=== PATIENT | male | born 1950 | race Caucasian/White ===

== ENCOUNTER 2016-10-07 05:23 | Inpatient (IN) ==
[~2016-10-07 05:23] MED LIST: SALINE FLUSH 10ml SYRINGE IVF PRN
[2016-10-07] MEDS ORDERED: FAMOTIDINE PB 20 MG/50 ML BAG IV ONE (06:00)
[2016-10-07] MEDS ORDERED: DEXAMETHASONE 4 MG/ML INJECTION IVP ONE (06:00)
[2016-10-07] MEDS ORDERED: METOCLOPRAMIDE 10mg/2ml INJECTION IVP ONE (06:00)
[2016-10-07] MEDS ORDERED: LIDOCAINE 1% (10mg/ml) 10mL MDV SQ ONE (06:00)
[2016-10-07] MEDS ORDERED: NOZIN NASAL SWAB NAS ONE ×2 (06:00→10:40)
[2016-10-07] MEDS ORDERED: TRANEXAMIC ACID 1,000 MG in NS 100 ML IV ONE ×2 (06:00→07:00)
[2016-10-07] MEDS ORDERED: MELOXICAM 15 MG TABLET PO ONE (06:00)
[2016-10-07] MEDS ORDERED: CEFAZOLIN 1 G INJECTION IVP ONE (06:00)
[2016-10-07] MEDS ORDERED: ACETAMINOPHEN 500 MG TABLET PO ONE (06:00)
[2016-10-07] MEDS ORDERED: ONDANSETRON 4 MG/2 ML INJECTION IVP ONE (06:00)
[2016-10-07] MEDS: LR 1,000 ML IV SCH ×4 (06:16→10:23)
[2016-10-07] MEDS ORDERED: VANCOMYCIN 1,000 MG INJECTION ONE (06:27)
[2016-10-07] MEDS ORDERED: MIDAZOLAM 2mg/2ml INJECTION ONE (07:25)
[2016-10-07] MEDS ORDERED: EPINEPHrine 0.25 MG, BUPIVACAINE 0.25% PF 30 ML, MORPHINE SULFATE 15 MG, KETOROLAC INJ ... OPSITE ONE (08:00)
[2016-10-07] MEDS ORDERED: VANCOMYCIN 1,000 MG INJECTION IAR ONE (08:59)
--- NOTE | 2016-10-07 08:59 | Anesthesia Preoperative Report ---
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 Allergies/Adverse Reactions: Allergies Allergy/AdvReac Type Severity Reaction Status Date / Time Sulfa (Sulfonamide Allergy Unknown Verified 10/07/16 05:53 Antibiotics) - Vital Signs Vital Signs: Temperature 98.0 F 10/07/16 05:41 Pulse Rate 58 L 10/07/16 06:00 Respiratory Rate 16 10/07/16 05:41 Blood Pressure 197/90 H 10/07/16 05:41 Pulse Oximetry 98 10/07/16 05:41 Oxygen Delivery Method Room Air Height and Weight: Height 1.73 m Weight 100.6 kg Body Mass Index 33.7 - Medications Inpatient Medications: Current Medications Epinephrine HCl 0.25 mg/Bupivacaine HCl 30 ml/Morphine Sulfate 15 mg/Ketorolac Tromethamine 60 mg/Sodium Chloride 65.25 mls @ 1 mls/hr OPSITE INTRAOP ONE PRN Reason: Protocol Stop: 10/10/16 01:14 Lactated Ringer's (Lactated Ringers) 1,000 mls @ 50 mls/hr IV .Q20H TEJAL Last Admin: 10/07/16 07:40 Dose: 50 mls/hr Sodium Chloride (Iv Flush) 10 - 80 ml IVF PRN PRN PRN Reason: [place] Home Medications: Home Medications Medication Instructions Recorded Confirmed Type Simvastatin 20 mg PO HS #0 09/24/12 10/07/16 History Aspirin [Aspirin EC] 81 mg PO BID 09/17/16 10/07/16 History Multivitamin [One-A-Day Essential] 1 each PO DAILY 09/17/16 10/07/16 History metoprolol succinate ER 25 mg 25 mg PO BID tab 09/17/16 10/07/16 History tablet,extended release 24 hr - Surgical History HEENT Surgeries: Reports: Eye Surgery (cataract OD with IOL) Cardiac Surgeries/Treatments: Reports: Other (left carotid endarterectomy) GI Surgery/Treatments: Reports: Hernia Repair (meka inguinal and umb) Musculoskeletal Surgery/Tx: Reports: Total Hip Replacement (Left) - Social History Smoking Status: Never smoker - Discussion Discussion: Discussed risks/options/alternatives of anesthesia and questions answered. Patient consents. Nursing pain assessment noted. Attestation Statement: Prior to the delivery of any anesthetic medication, I examined the patient, developed the plan, obtained the patient's consent and discussed the risk and benefits of the procedure with the patient/guardian.
--- NOTE | 2016-10-07 09:08 | Operative Note ---
- Procedure Date of Admission: 10/07/16 Side: right Preoperative Diagnosis: hip primary DJD Postoperative Diagnosis: Same as preoperative diagnosis. Operation: total hip arthroplasty Surgeon: Sajan Beckwith MD Exhibit Preparator: Diego Chan Complications: None. Regional/Trunk Block: Spinal Estimated Blood Loss: See Anesthesia Record. Fluids: Please see Anesthesia Record. Description of Procedure: Mr. siddiqui and his right hip were identified and marked in the preoperative holding area. He was brought back to the operating suite and spinal anesthetic was administered. He was then placed in a lateral decubitus position with his right hip up. The right lower extremity was prepped and draped in my normal sterile fashion. Timeout was performed. The [employer] robotic arm was used to assist with the surgery. A direct superior approach was utilized. An approximately 15 cm incision was made in the skin and dissection carried down to the muscle fascia which was then split in line with skin incision. A checkpoint was placed in the greater trochanter. The short external rotators were identified and tagged and detached. A capsulotomy was performed and the hip dislocated. A femoral neck osteotomy was performed at the pre-templated level measuring down from the femoral head. The head was removed and acetabulum exposed. He had significant osteophyte formation as expected from the CT scan. Labrum was removed. A checkpoint was placed superior to the acetabulum. The acetabulum was then registered with the robot. The robotic arm was then used to ream with a 51 reamer. I trialed with a 50 cup and anteversion looked good. The robot then was again used to place a 52 Trident cup in 40 of tilt and 20 of anteversion. A liner was then placed. The proximal femur was exposed and prepared with a cookie cutter followed by reaming and broaching to a size 6. We trialed with a 0 head. After thorough irrigation a final Accolade 2 size 6 stem with 127 neck was placed. Leg length and offset were checked with the robot and were good. A final +2.5 ceramic head was placed and the hip reduced. This increased his operative labor 5 mm and left him 3 mm short compared to his left side. Betadine solution was used to irrigate throughout the case. It was followed by normal saline irrigation. Joint cocktail was injected throughout soft tissue. The capsulotomy was repaired with Ethibond. Short external rotators were also repaired with Ethibond. 1 g of vancomycin powder was placed into the wound. The muscle fascia was then repaired with #1 Vicryl. I then left my system to close the subcutaneous tissue with 2-0 Vicryl followed by running 4-0 Monocryl skin followed by Dermabond and a sterile dressing. The patient with any placed back into supine position and taken to recovery room in the care of anesthesia.
--- NOTE | 2016-10-07 09:14 | Anesthesia Preoperative Report ---
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 Proposed Procedure: robotic right total hip arthroplasty NPO Since Date: 10/06/16 NPO Since Time: 23:00 Allergies/Adverse Reactions: Allergies Allergy/AdvReac Type Severity Reaction Status Date / Time Sulfa (Sulfonamide Allergy Unknown Verified 10/07/16 05:53 Antibiotics) - Vital Signs Vital Signs: Temperature 98.0 F 10/07/16 05:41 Pulse Rate 58 L 10/07/16 06:00 Respiratory Rate 16 10/07/16 05:41 Blood Pressure 197/90 H 10/07/16 05:41 Pulse Oximetry 98 10/07/16 05:41 Oxygen Delivery Method Room Air Height and Weight: Height 5 ft 8 in Weight 100.6 kg Body Mass Index 33.7 - Medications Inpatient Medications: Current Medications Epinephrine HCl 0.25 mg/Bupivacaine HCl 30 ml/Morphine Sulfate 15 mg/Ketorolac Tromethamine 60 mg/Sodium Chloride 65.25 mls @ 1 mls/hr OPSITE INTRAOP ONE PRN Reason: Protocol Stop: 10/10/16 01:14 Last Admin: 10/07/16 08:56 Dose: 1 mls/hr Lactated Ringer's (Lactated Ringers) 1,000 mls @ 50 mls/hr IV .Q20H TEJAL Last Admin: 10/07/16 08:49 Dose: 50 mls/hr Sodium Chloride (Iv Flush) 10 - 80 ml IVF PRN PRN PRN Reason: [place] Home Medications: Home Medications Medication Instructions Recorded Confirmed Type Simvastatin 20 mg PO HS #0 09/24/12 10/07/16 History Aspirin [Aspirin EC] 81 mg PO BID 09/17/16 10/07/16 History Multivitamin [One-A-Day Essential] 1 each PO DAILY 09/17/16 10/07/16 History metoprolol succinate ER 25 mg 25 mg PO BID tab 09/17/16 10/07/16 History tablet,extended release 24 hr Is Patient on Beta Raad?: Yes Beta Raad Last Dose Date/Time: metroprolol this am - Medical History Respiratory: DENIES: Sleep Apnea Cardiovascular: Reports: Hypertension, High Cholesterol DENIES: Coronary Artery Disease Gastrointestional: Reports: Gastroesophageal Reflux Disease Renal/Endocrine: DENIES: Diabetes Mellitus Type 2 - Surgical History HEENT Surgeries: Reports: Eye Surgery (cataract OD with IOL) Cardiac Surgeries/Treatments: Reports: Other (left carotid endarterectomy) GI Surgery/Treatments: Reports: Hernia Repair (meka inguinal and umb) Musculoskeletal Surgery/Tx: Reports: Total Hip Replacement (Left) Hx Family Anesthesia Reaction: No History of Motion Sickness: No - Social History Smoking Status: Never smoker Hx Chewing Tobacco Use: No Second Hand Exposure: No Substance Use Type: does not use - Physical Exam Respiratory Exam: Present: lungs clear Cardiovascular Exam: Present: regular rate and rhythm - Airway Assessment Mallampati Score: III TMD: 3 Fingerbreadths Neck Extension: good Teeth: upper dentures Overall Assessment: no airway concerns - ASA ASA Score: 2 - Plan Anesthesia: General TIVA Regional/Trunk Block: Spinal - Discussion Discussion: Discussed risks/options/alternatives of anesthesia and questions answered. Patient consents. Nursing pain assessment noted. Present for Discussion: spouse Attestation Statement: Prior to the delivery of any anesthetic medication, I examined the patient, developed the plan, obtained the patient's consent and discussed the risk and benefits of the procedure with the patient/guardian. - Additional Information Seen by Anesthesia: Yes
--- NOTE | 2016-10-07 09:26 | History & Physical Update ---
- History and Physical Update Date: 10/07/16 Update: I evaluated this patient and found no changes in the history and clinical exam findings. The treatment plan and recommendations are also unchanged from the previous documentation.
--- NOTE | 2016-10-07 10:14 | Anesthesia Postoperative Note ---
- Date and Time Date: 10/07/16 Time: 10:00 - Status Patient Participated in Evaluation: Patient Participated in Person Vital Signs: Temperature 97.0 F 10/07/16 09:33 Pulse Rate 68 10/07/16 10:05 Respiratory Rate 16 10/07/16 10:05 Blood Pressure 109/57 10/07/16 10:05 Pulse Oximetry 97 10/07/16 10:05 Oxygen Delivery Method Room Air Respiratory Function: Airway Patent Cardiovascular Function: Regular Pulse EKG Rhythm: Normal Sinus Rhythm Mental Status: Alert and Oriented Pain Intensity: 0 Hydration: IV Infusing Complications During Recover: None Apparent - Follow-Up Instructions Instructions: Per Surgeon
[2016-10-07] MEDS ORDERED: LORazepam 1 MG TABLET PO PRN (10:40)
[2016-10-07] MEDS ORDERED: DiphenhydrAMINE 25 MG CAPSULE PO PRN (10:40)
[2016-10-07] MEDS ORDERED: ONDANSETRON 4 MG/2 ML INJECTION IVP PRN (10:40)
[2016-10-07] MEDS ORDERED: DiphenhydrAMINE 50 MG/ML INJECTION IVP PRN (10:40)
[2016-10-07] MEDS ORDERED: Oxycodone *IR* 5 MG TABLET PO PRN (10:40)
[2016-10-07] MEDS ORDERED: NAPROXEN 220 MG TABLET PO PRN (10:40)
[2016-10-07] MEDS ORDERED: FALL RISK - PHARMACY CONSULT XX PRN (10:45)
[2016-10-07] MEDS: NS 1,000 ML IV SCH (10:47)
[2016-10-07 10:51] VITALS: BMI 35.6
--- NOTE | 2016-10-07 11:04 | XRay Report ---
Indication: postoperative image PROCEDURE: XR pelvis w/ 1 view RT hip: Encounter: Initial Comparison: September 17, 2016 Findings: Postoperative changes of right total hip replacement are seen. There is expected postoperative subcutaneous gas. No evidence of hardware failure or acute fracture. No retained radiopaque surgical instruments or sponges seen. Existing left hip prosthesis is unchanged. Impression: New right total hip prosthesis without evidence of immediate complication. .
[2016-10-07] MEDS: ACETAMINOPHEN 325 MG TABLET PO SCH ×3 (12:58→21:20)
[2016-10-07] MEDS ORDERED: PNEUMOCOCCAL 13 VACCINE 0.5ml INJECTION IM ONE (13:07)
[2016-10-07] MEDS: NOZIN NASAL SWAB NAS SCH ×2 (13:59→21:21)
[2016-10-07] MEDS ORDERED: PNEUMOCOCCAL VAC ADMIN CHARGE INJ ONE (14:00)
[2016-10-07] MEDS: CEFAZOLIN 2 G in NS 100 ML IV SCH (16:57)
[2016-10-07] MEDS: ASPIRIN *EC* 325 MG TABLET PO SCH (21:19)
[2016-10-07] MEDS: DOCUSATE SODIUM 100 MG CAPSULE PO SCH (21:19)
[2016-10-07] MEDS ORDERED: SIMVASTATIN 20 MG TABLET PO SCH (22:00)
[2016-10-07] MEDS ORDERED: SENNOSIDES 8.6 MG TABLET PO SCH (22:00)
[2016-10-08] MEDS: NS 1,000 ML IV SCH ×2 (00:13→11:31)
[2016-10-08] MEDS: CEFAZOLIN 2 G in NS 100 ML IV SCH (00:14)
[2016-10-08] MEDS: NOZIN NASAL SWAB NAS SCH ×2 (05:47→13:12)
--- NOTE | 2016-10-08 07:57 | Orthopedic Progress Note ---
Date: Subjective/Severity of Illness: Rogelio is doing very well. He reports "no pain". He has been up with good tolerance. No CP, cough or SOA. Orthopedic Objective PO Vital signs: Temperature 96.1 F L 10/08/16 07:10 Pulse Rate 60 10/08/16 07:10 Respiratory Rate 14 10/08/16 07:10 Blood Pressure 116/48 10/08/16 07:10 Pulse Oximetry 96 10/08/16 07:10 Oxygen Delivery Method Room Air Height and Weight: Height 5 ft 8 in Weight 236 lb 5.369 oz Body Mass Index 35.6 - Constitutional General Appearance: Present: alert, no acute distress - Respiratory Exam Present: non-labored - Extremities Exam Extremities: Present: pulses intact. Absent: calf tenderness - Surgical Site Incision: Mepilex dressing intact, dressing intact, no drainage - Neurological Exam Present: no deficits - Labs Result Diagrams: 10/08/16 05:20 10/08/16 05:20 Abnormal lab results 10/08/16 10/08/16 Range/Units 05:20 05:20 RBC 3.02 L (4.50-5.90) M/MM3 Hgb 9.9 L (13.5-17.5) GM/DL Hct 30.9 L (41-53) % MCV 102.3 H (80-100) UM3 Chloride 111 H (98-107) MEQ/L Calcium 7.9 L (8.4-10.2) MG/DL H & H 10/08/16 Range/Units 05:20 Hgb 9.9 L (13.5-17.5) GM/DL Hct 30.9 L (41-53) % Orthopedic Assessment and Plan (1) Primary osteoarthritis of right hip Status: Acute Assessment and Plan: Current anti-coagulation protocol for VTE prophylaxis. SCD's. PT/OT services to improve independent function. Discharge Planning per Case Management. Hospital Course Summary Disclaimer: The visit summary below is not to be considered part of the above Progress Note.
--- NOTE | 2016-10-08 08:01 | Discharge Summary ---
Orthopedic Discharge Info Date of admission: 10/07/16 05:23 Primary care physician: Dionicio Stephen MD Attending Physician: Jerry Beckwith MD Consults: 10/07/16 05:35 Consult to Anesthesiology [CONS] Routine Consulting Provider: NGOC Davis Reason For Exam: Preoperative Assessment 10/07/16 10:40 Case Management Consult [CONS] Routine Reason For Exam: Discharge Planning DME-Walker [CONS] Routine Height: 5 ft 8 in Weight: 221 lb 12.56 oz Comment: change dressing in 2 weeks Total Joint Outpatient Therapy [CONS] Routine Comment: change dressing in 2 weeks - Discharge Diagnosis (1) Primary osteoarthritis of right hip Status: Acute - Procedures Procedures: Procedures Left Total hip replacement (09/27/12) Robotic assisted R EAN 10/07/16 - Laboratory Result Diagrams: 10/08/16 05:20 10/08/16 05:20 Laboratory: Abnormal lab results 10/08/16 10/08/16 Range/Units 05:20 05:20 RBC 3.02 L (4.50-5.90) M/MM3 Hgb 9.9 L (13.5-17.5) GM/DL Hct 30.9 L (41-53) % MCV 102.3 H (80-100) UM3 Chloride 111 H (98-107) MEQ/L Calcium 7.9 L (8.4-10.2) MG/DL H & H 10/08/16 Range/Units 05:20 Hgb 9.9 L (13.5-17.5) GM/DL Hct 30.9 L (41-53) % Orthopedic Discharge HPI - HPI Comments This patient was admitted for elective surgical tx of end stage degenerative joint disease that failed to respond to conservative treatment. Further details of this is found in the admission H&P. Orthopedic Hospital Course Hospital course: 10/08/16 08:00 After appropriate preoperative clearance and signing of operative consent, the patient was given IV antibiotics, according to orthopedic protocol. The patient was taken to the operating room and underwent elective robotic assisted right total hip arthroplasty on 10/07/16. Following surgery, antibiotics were discontinued less than 24 hours according to joint protocol. Appropriate anticoagulants were initiated and SCDs added for DVT prevention. The dressing was clean, dry, and intact. Pain control was obtained via multimodal approach. Bowel motivation addressed with scheduled and PRN medications. Early mobilization was initiated through PT services. Discharge arrangements made by a collaborative effort between the patient and Case Management. Follow-up is scheduled in 2-3 weeks. Discharge instructions given by orthopedic providers and nursing staff at discharge. Discharge condition was good. Ongoing care required?: No Discharge Plan - Med Rec/Dispo Referrals/Follow Up: Jerry Beckwith MD [Physician] - (October 29 at 10:00am) Jduvnya Instructions: [facility] Amena General Instructions, [facility] Ortho Postop Instructions Additional Instructions: [facility] ON 10/10/2016 AT 10:15AM FOR PHYSICAL THERAPY EVAL. REGISTER AT THE SENIOR DATA ARCHITECT. PLEASE BRING INSURANCE CARDS WITH YOU THE APPOINTMENT. PHONE [phone] Prescriptions: New Aspirin *EC* [Ecotrin] 325 mg PO BID #84 tablet Milk of Magnesia [Mom] 30 ml PO DAILY udc Oxycodone *Ir* [Roxicodone *Ir*] 5 - 15 mg PO Q3H PRN #40 tablet PRN Reason: Breakthrough Pain PEG 3350 17gm PACKET [Miralax] 17 gm PO DAILY packet Acetaminophen [Tylenol] 650 mg PO QID tablet Docusate Sodium [Colace] 100 mg PO BID capsule Naproxen [Aleve] 440 mg PO BID PRN tablet PRN Reason: Pain Continue Multivitamin [One-A-Day Essential] 1 each PO DAILY Simvastatin 20 mg PO HS #0 metoprolol succinate ER 25 mg tablet,extended release 24 hr 25 mg PO BID tab Discontinued Aspirin [Aspirin EC] 81 mg PO BID - Disposition 01 Discharged Home, Self-Care
[2016-10-08] MEDS ORDERED: POLYETHYL GLYCOL 3350 17gm PACKET PO SCH (09:00)
[2016-10-08] MEDS: ACETAMINOPHEN 325 MG TABLET PO SCH ×2 (09:10→13:12)
[2016-10-08] MEDS: ASPIRIN *EC* 325 MG TABLET PO SCH (09:10)
[2016-10-08] MEDS: DOCUSATE SODIUM 100 MG CAPSULE PO SCH (09:11)
[2016-10-08] MEDS ORDERED: SENNOSIDES 8.6 MG TABLET PO PRN (09:28)
[2016-10-08 11:32] VITALS: BP 128/59; PULSE 67; RESP 16; TEMP 96.5; O2SAT 98
[2016-10-09] MEDS ORDERED: BISACODYL 10 MG SUPPOSITORY RECTALLY SCH (20:00)
== END 2016-10-08 13:50 | disposition home or self-care (01) | DRG 470 ==
LOC: SRG 05:23
PROVIDERS: ADMIT Orthopaedic Surgery; ATTEND Orthopaedic Surgery